=== PATIENT | male | born 1970 | race Caucasian/White ===

== ENCOUNTER 2017-05-05 19:03 | Emergency (ER) | payer SELFPAY ==
--- NOTE | 2017-05-05 21:09 | EDPHY ---
H & P Stated Complaint: left foot injury Time Seen by Provider: 05/05/17 19:33 HPI/ROS: Chief complaint: Left foot injury History of present illness: This is a 46-year-old male who presents to the emergency department for left foot injury. Patient states he injured it last night while skateboarding and struck it against the ground. He has pain along the outer aspect of the foot radiating to the outer aspect of the ankle. It makes it difficult to ambulate. He denies associated signs or symptoms including no open wounds. No abnormal coolness or paresthesias in the foot. No report of trauma to other parts of the body. - Personal History Current Tetanus Diphtheria and Acellular Pertussis (TDAP): Yes - Medical/Surgical History Hx Asthma: No Hx Chronic Respiratory Disease: No Hx Diabetes: No Hx Cardiac Disease: No Hx Renal Disease: No Hx Cirrhosis: No Hx Alcoholism: No Hx HIV/AIDS: No Hx Splenectomy or Spleen Trauma: No Other PMH: denies - Social History Smoking Status: Never smoked - Physical Exam Exam: General: Alert, nontoxic Skin: Contusion and edema to the lateral aspect of the foot and ankle. No open wounds. Musculoskeletal: Tenderness to the lateral aspect of the foot and ankle. He is moving the digits of the left foot and the ankle in all collazo. The Achilles tendon appears intact without defect. Vascular: DP and PT pulses 2+. Capillary refill brisk in the left foot. Neurologic: Sensation intact throughout the left foot and ankle. Constitutional: Initial Vital Signs Temperature (C) 37.1 C 05/05/17 19:09 Heart Rate 77 05/05/17 19:09 Respiratory Rate 20 05/05/17 19:09 Blood Pressure 121/82 H 05/05/17 19:09 O2 Sat (%) 98 05/05/17 19:09 O2 Delivery Mode Room Air Allergies/Adverse Reactions: Penicillins Allergy (Verified 05/05/17 19:08) Home Medications: Medication Instructions Recorded NK [No Known Home Meds] 05/05/17 Medical Decision Making - Diagnostics Imaging Results: Imaging Impressions Ankle X-Ray 05/05/17 19:44 Impression: 1. Nondisplaced oblique fracture distal shaft left fifth metatarsal. 2. Nondisplaced fracture proximal lateral margin of the cuboid. Findings discussed with RYAN Gao at 22:17 hour, 05/05/2017. Foot X-Ray 05/05/17 19:44 Impression: 1. Nondisplaced oblique fracture distal shaft left fifth metatarsal. 2. Nondisplaced fracture proximal lateral margin of the cuboid. Findings discussed with RYAN Gao at 22:17 hour, 05/05/2017. Imaging: I viewed and interpreted images myself Procedures: Procedure: Splint placement. A walking boot splint was applied. After application of the splint I returned and re-examined the patient. The splint was adequately immobilizing the joint and distal to the splint the patient's circulation and sensation was intact. ED Course/Re-evaluation: Patient seen under the supervision of my secondary supervising physician Dr. Crispin Carmona. Patient presents to the emergency department for a left foot and ankle injury. The foot is neurovascularly intact. X-ray confirms a 5th metatarsal and cuboid fracture. He is placed in a walking boot. Patient was quite upset that his emergency room care took a few hours. I told him that unfortunately we are busy and we cannot always get care complete as quick as patient is would like. Patient is discharged to follow up with Orthopedics. Differential Diagnosis: Included but not limited to contusion, sprain, strain, fracture, joint dislocation - Data Points Medications Given: Discontinued Medications Ibuprofen (Motrin) 600 mg PO EDNOW ONE Stop: 05/05/17 21:30 Last Admin: 05/05/17 21:32 Dose: 600 mg Departure - Departure Disposition: Home, Routine, Self-Care Clinical Impression: Foot fracture, left Qualifiers: Encounter type: initial encounter Fracture type: closed Qualified Code(s): S92.902A - Unspecified fracture of left foot, initial encounter for closed fracture Condition: Good Instructions: Foot Fracture in Adults (ED) Additional Instructions: Follow-up with orthopedics for continued evaluation and care Use ibuprofen 600 mg 3 times a day for the next 2-3 days for pain Ice the injury, 20 minutes on, 3 times daily for the next 3 days Elevate the injury as much as possible If symptoms worsen or new symptoms develop return to the emergency room for recheck Referrals: NONE *PRIMARY CARE P,. [Primary Care Provider] - As per Instructions Felix Kessler MD [Medical Doctor] - As per Instructions Stand Alone Forms: Work Excuse
[2017-05-05] MEDS ORDERED: IBUPROFEN 600 MG TAB PO ONE (21:29)
[2017-05-05 21:43] VITALS: BP 126/72; PULSE 78; RESP 16; TEMP 98.2; O2SAT 97
== END 2017-05-05 21:40 | disposition home or self-care (01) ==
DX: S92.355A Nondisplaced fracture of fifth metatarsal bone, left foot, initial encounter for closed fracture (principal); W22.8XXA Striking against or struck by other objects, initial encounter; Y99.8 Other external cause status; Y93.51 Activity, roller skating (inline) and skateboarding
CPT/HCPCS: L4386